=== PATIENT | female | born 1995 | race Caucasian/White ===

== ENCOUNTER 2022-03-31 08:07 | Outpatient (CLI) | payer MEDICAID, SELFPAY ==
--- NOTE | 2022-03-31 08:15 | CRLHL7_ITS ---
For Patients: As a result of the Century Cures Act, medical imaging exams and procedure reports are released immediately into your electronic medical record. You may view this report before your referring provider. If you have questions, please contact your health care provider. INDICATION: Evaluate anatomy. COMPARISON: none TECHNIQUE: Real time vega scale imaging of the fetus was performed as well as color Doppler analysis of the umbilical vessels. FINDINGS: Sonographic imaging demonstrates a single living intrauterine gestation. Fetus demonstrates a regular cardiac rate of 139 beats per minute. Fetus has a variable position. The placenta lies posteriorly without evidence of placenta previa. The edge of the placenta is located 9.6 cm from the internal cervical os. Amniotic fluid volume appears normal. Single deepest vertical pocket: 6.2 cm. The cervix is closed and measures 3.8 cm in length. The composite ultrasound gestational age is calculated at 21 weeks 1 day with an estimated sonographic due date of 08/10/2022. The estimated weight is 409 grams which lies at the 74th %. The following biometric measurements were obtained: Biparietal diameter: 4.9 cm/21 weeks 0 days 59th% Head circumference: 18.7 cm/21 weeks 0 days 55th% Abdominal circumference: 16.5 cm/21 weeks 4 days 70th% Femur length: 3.5 cm/21 weeks 0 days 52nd% The HC/AC ratio measures: 1.13 range (1.06-1.25) On anatomic survey, there is a normal appearance of the cerebral ventricles, cavum septi pellucidi, cisterna magna and cerebellum. The nose, lips, and facial profile appear normal. The cervical, thoracic and lumbar spine are well visualized and appear normal. There is a normal four-chamber heart view and the left and right ventricular outflow tracts appear normal. The diaphragm and stomach appear normal. The kidneys and bladder also appear normal. There is a normal three-vessel cord. Marginal cord insertion into the placenta located 7 millimeters from the edge of the placenta. The four extremities appear normal. IMPRESSION: Normal anatomic survey. Marginal cord insertion into the placenta located 7 millimeters from the placental edge. Sonographic gestational age 21 weeks 1 day and sonographic due date 08/10/2022. Good correlation with dates. Estimated weight 74th percentile. Dictated by Jayce Pope MD @ 03/31/2022 9:48:08 AM (Electronically Signed)
== END 2022-03-31 08:08 | disposition home or self-care (01) ==
LOC: US 08:07
PROVIDERS: Visit Provider Physician Assistant
DX: Z34.92 Encounter for supervision of normal pregnancy, unspecified, second trimester (principal); Z3A.21 21 weeks gestation of pregnancy
CPT/HCPCS: 76805

== ENCOUNTER 2022-05-26 08:57 | Outpatient (CLI) | payer OTHER, SELFPAY ==
[2022-05-27 23:47] LABS: Rapid Plasma Reagin (RPR) Non Reactive (Non Reactive)
[2022-06-04 08:39] LABS: Glucose Fasting Check 73 mg/dl (60-115)
[2022-06-04 13:18] LABS: Glucose GTT-Gestational 3 Hr 108 mg/dl (70-140)
[2022-06-04 13:18] LABS: Glucose 1 Hour Gest 93 mg/dl (70-180)
== END 2022-05-26 08:58 | disposition home or self-care (01) ==
PROVIDERS: Obstetrics & Gynecology; Visit Provider Obstetrics & Gynecology
DX: O99.810 Abnormal glucose complicating pregnancy (principal); Z3A.28 28 weeks gestation of pregnancy
CPT/HCPCS: 86592; 86850

== ENCOUNTER 2022-06-04 08:29 | Outpatient (CLI) | payer OTHER, SELFPAY | END 2022-06-04 08:30 | disposition home or self-care (01) | LOC: NFLDREF 08:30 | PROVIDERS: Visit Provider Obstetrics & Gynecology | DX: Z34.93 Encounter for supervision of normal pregnancy, unspecified, third trimester (principal); Z3A.30 30 weeks gestation of pregnancy | CPT/HCPCS: 82951; 82952 ==

== ENCOUNTER 2022-06-22 09:02 | Outpatient (CLI) | payer OTHER, SELFPAY ==
--- NOTE | 2022-06-22 09:15 | CRLHL7_ITS ---
For Patients: As a result of the Cures Act, medical imaging exams and procedure reports are released immediately into your electronic medical record. You may view this report before your referring provider. If you have questions, please contact your health care provider. INDICATION: Third trimester scan, evaluate growth. MARGINAL CORD INSERTION COMPARISON: 03/31/2022 TECHNIQUE: Real time vega scale imaging of the fetus was performed. FINDINGS: Sonographic imaging demonstrates a single living intrauterine gestation. Fetus demonstrates a regular cardiac rate of 139 beats per minute. Fetus has a vertex position. The placenta lies posteriorly. Amniotic fluid volume appears normal and there is a single deepest vertical pocket: 3.0 cm. The estimated weight is 1990gm which lies at the 38th %. On the prior OB ultrasound exam dated 03/31/2022 the estimated weight was at the 74th%. BPD 14th percentile. HC 21st percentile. AC 61st percentile. FL 22nd percentile. The HC/AC ratio measures 1.03 range (0.96-1.13). Placental cord insertion 1.7 cm from the edge of the placenta. IMPRESSION: Sonographic gestational age 32 weeks 2 days and sonographic due date 08/15/2022. Good correlation with dates. Normal interval growth. Estimated weight 38th percentile. Abdominal circumference 61st percentile. Marginal cord insertion with the cord located 1.7 cm from the placental edge. Dictated by Jayce Pope MD @ 06/22/2022 11:32:27 AM (Electronically Signed)
== END 2022-06-22 09:03 | disposition home or self-care (01) ==
LOC: US 09:03
PROVIDERS: Visit Provider Physician Assistant
DX: O43.193 Other malformation of placenta, third trimester (principal); Z3A.32 32 weeks gestation of pregnancy
CPT/HCPCS: 76816

== ENCOUNTER 2022-07-15 13:52 | Outpatient (CLI) | payer OTHER, SELFPAY ==
[2022-07-16 12:18] LABS: Strep B DNA Probe NEGATIVE (Negative)
[2022-07-16 20:52] LABS: Strep B Pen/Amox Allergy No
== END 2022-07-15 13:53 | disposition home or self-care (01) ==
PROVIDERS: Visit Provider Advanced Practice Midwife
DX: Z34.83 Encounter for supervision of other normal pregnancy, third trimester (principal); Z3A.35 35 weeks gestation of pregnancy
CPT/HCPCS: 76816; 87081; 87653

== ENCOUNTER 2022-08-03 07:45 | Inpatient (IN) | payer BC, SELFPAY ==
[2022-08-03] VITALS (18 sets, daily range): BP systolic 109–144; BP diastolic 57–86; PULSE 51–115; RESP 14–16; TEMP 36.7–37.2; O2SAT 84–100; BMI 27.8
[2022-08-03 08:54] LABS: SARS PCR* Negative SARS-CoV-2 (Negative)
--- NOTE | 2022-08-03 10:55 | W.PM.LDBA ---
Subjective History of Present Illness Date Seen: 08/03/22 Narrative: Patient is being admitted to Labor and Delivery for labor. She is a 27 year old -0-0-1 woman at 38 weeks, 4 days gestation by LMP consistent with 1st trimester ultrasound, CRISTOBAL 08/13/2022. Specific Issues/Plans blood type:?A positive Spouse: Dustin ( in the second trimester). Boy at home: Doug. G2, P1001 (Dustin also has a 14 y.o. son) 1. Closely spaced pregnancies.? Delievered 01/23/21 2. H/o genital HSV.? Rec. prophylactic tx at 36 weeks. -Confirm pt has started Valtrex by 37 weeks. 3. Marginal cord insertion 0.7 cm from edge.? US for EFW: 32 weeks: 38% 36 weeks: 39% 4. Elevated 1 hr GTT: 3hr GTT Passed. Flu: 06/22/2022 Tdap: 06/22/2022 Covid: completed.? Planning to obtain booster. Her full history and physical was dictated by Dr. Mena on 07/24/2022. Please see this for details. OB - H&P: Exam Physical Exam: Vital signs: Temp Pulse Resp BP Pulse Ox 98.0 F 77 16 109/72 98 08/03/22 07:12 08/03/22 10:46 08/03/22 07:12 08/03/22 10:46 08/03/22 10:47 Narrative: Physical exam: General: No acute distress Psych: Alert and oriented x3, full affect HEENT: Normocephalic, atraumatic Neck: No cervical adenopathy, no thyromegaly Heart: Regular rate and rhythm, no murmur rub or gallop Lungs: Clear to auscultation bilaterally Abdomen: Soft, nontender, gravid Lower extremities: No edema or erythema Cervical exam: 4.5 cm, 70% effaced,-1 station per RN at 7:30 a.m.. Bag of water intact. Repeat exam: 8 / 100 / +2, BBOW tracing: Baseline 120, accelerations to 160, no decelerations, moderate variability OB - Problem Based A/P Additional Plan (1) : Status: Resolved Plan 27-year-old [id number] woman at 38 weeks, 4 days gestation in early labor. History of genital herpes, currently maintained on Valtrex for suppression. Reassuring status with category 1 tracing. GBS negative. Delivery/Labor/Induction Plan Plan: expectant management
--- NOTE | 2022-08-03 14:00 | P.OBPRC_ITS ---
Procedure Procedure Done: [facility] Procedure Details: The patient is a 27 year-old G 2 P 1-0-0-1 woman admitted on 08/03/2022 at 38 Weeks, Days gestation for labor.? Cervical exam on admission was 4 cm/70 % effaced/-1 station with membranes intact in vertex presentation.? Contractions were every 5-7 minutes.? heart rate demonstrated baseline 120 bpm with moderate variability, positive accelerations, no decelerations; a category 1 tracing.? ? Labor Analgesia:? None ? Pitocin:? No ? Labor onset:? 11:50 a.m. AROM occurred at 1:05 p.m. with clear fluid. ? Complete:? 1:14 p.m. ? Pushing:? 1:14 p.m. ? heart tones during second stage were difficult to consistently trace; there may have been intermittent variable decelerations. ? Patient pushed in dorsal lithotomy, squatting in bed, and on hands and knees, but was unable to move the infant. She then used the stool, after which point she pushed twice. Infant's head delivered in a controlled fashion in OA presentation. The anterior shoulder was not delivered with guidance of the head posteriorly. Shoulder dystocia was diagnosed. In order to affect delivery of the shoulder, patient was moved to her back on the floor. With her knees placed in Beatriz position, the anterior shoulder was easily guided beneath the pubic bone, and the remainder of the body was delivered without difficulty. Total time between delivery of infant head and shoulder was approximately 1 minute. Female was delivered at 1:36 p.m.. Infant was placed on maternal abdomen.? Cord was clamped and cut after a 60 second delay.? Nose and mouth were bulb suctioned.? Infant weight pending.? 8 at 1 minute and 9 at 5 minutes.? Shoulder dystocia: Yes, as above.? Nuchal cord: No. ? Placenta delivered spontaneously and complete at 1:42 p.m. A succenturiate lobe and marginal cord insertion was noted. ? Mother and were stable after delivery. ? Lacerations:? Small first-degree vaginal laceration at 5 o'clock along the introitus, which was hemostatic and did not require repair. ? Blood loss: 50 mL. Blood loss measurement type: EBL ? Sponge and needles counts are correct.
[2022-08-03] MEDS: IBUPROFEN 600 MG TABLET PO ×2 (14:40→21:41)
[2022-08-03] MEDS: ACETAMINOPHEN 500 MG TABLET 1000 MG PO (18:00)
[2022-08-03] MEDS: LANOLIN CREAM 1 APPLIC TOPICAL (18:18)
[2022-08-04 00:21] VITALS: BP 110/67; PULSE 81; RESP 16; TEMP 37.1; O2SAT 96
[2022-08-04] MEDS: ACETAMINOPHEN 500 MG TABLET 1000 MG PO ×2 (00:37→09:00)
[2022-08-04 05:41] VITALS: BP 104/64; PULSE 55; RESP 14; TEMP 36.8; O2SAT 96
[2022-08-04] MEDS: IBUPROFEN 600 MG TABLET PO ×2 (05:59→12:37)
[2022-08-04 06:44] LABS: Hemoglobin* 11.7 gm/dL (12.0-16.0)
--- NOTE | 2022-08-04 07:22 | P.DS_ITS ---
DS: Providers Provider Date Seen: 08/04/22 Date of admission: 08/03/22 07:45 Primary care physician: Not a Local Provider Admitting Clinician: Emi Huynh MD Attending Physician on discharge: Shahida Marino MD Date of Discharge: 08/04/22 DS: Diagnosis Discharge Diagnosis (1) Shoulder dystocia during labor and delivery, delivered: Status: Acute (2) Normal spontaneous vaginal delivery: Status: Acute (3) Lactating mother: Status: Acute Exam Narrative: Exam Narrative: Discharge Examination? GENERAL APPEARANCE:? normal affect, alert, no distress? MOOD:? appropriate? CHEST:? clear to auscultation and percussion? HEART:? regular rate and rhythm? ABDOMEN:? soft, non-tender the uterine fundus is 2 cm Below Umbilicus, Midline and is appropriate for the stage of recovery.? PERINEUM:? mild edema of the perineum, there is a 1st degree that is healing well.? EXTREMITIES:? normal and no edema? Patient has no complaints? No active bleeding?? Doing well? She is requesting discharge home.? Const: Vital Signs, click to edit/add: Vital Signs - 24 hr 08/03/22 10:46 08/03/22 10:47 08/03/22 13:17 Temperature 98.4 F Pulse Rate 77 Pulse Rate [Pulse Oximeter] Respiratory Rate 16 Blood Pressure 109/72 Blood Pressure [Le ft Arm] Pulse Oximetry 98 98 97 Oxygen Delivery [facility] 08/03/22 13:24 08/03/22 13:25 08/03/22 13:29 Temperature Pulse Rate Pulse Rate [Pulse Oximeter] Respiratory Rate Blood Pressure Blood Pressure [Le ft Arm] Pulse Oximetry 100 90 86 L Oxygen Delivery [facility] 08/03/22 13:31 08/03/22 13:35 08/03/22 13:44 Temperature Pulse Rate 73 Pulse Rate [Pulse Oximeter] Respiratory Rate Blood Pressure 144/86 H Blood Pressure [Le ft Arm] Pulse Oximetry 84 L 97 Oxygen Delivery [facility] 08/03/22 14:05 08/03/22 14:14 08/03/22 14:27 Temperature Pulse Rate 51 L 57 L 56 L Pulse Rate [Pulse Oximeter] Respiratory Rate Blood Pressure 113/75 117/57 L 118/59 L Blood Pressure [Le ft Arm] Pulse Oximetry Oxygen Delivery [facility] 08/03/22 14:44 08/03/22 15:02 08/03/22 15:14 Temperature Pulse Rate 52 L 71 59 L Pulse Rate [Pulse Oximeter] Respiratory Rate Blood Pressure 122/80 125/64 123/70 Blood Pressure [Le ft Arm] Pulse Oximetry Oxygen Delivery [facility] 08/03/22 15:29 08/03/22 19:24 08/04/22 00:21 Temperature 99.0 F 98.8 F Pulse Rate 54 L Pulse Rate [Pulse Oximeter] 68 81 Respiratory Rate 14 16 Blood Pressure 127/73 Blood Pressure [Le ft Arm] 121/77 110/67 Pulse Oximetry 97 96 Oxygen Delivery [facility] Room Air Room Air 08/04/22 05:41 Temperature 98.2 F Pulse Rate Pulse Rate [Pulse Oximeter] 55 L Respiratory Rate 14 Blood Pressure Blood Pressure [Le ft Arm] 104/64 Pulse Oximetry 96 Oxygen Delivery Me [facility] Room Air Documenting provider has reviewed patient's vital signs: yes OB - DS: Summary Hospital Course Hospital Course: Patient is a 27year old, G 2 now P 2? admitted on 08/03/22 at 38 Weeks, 4 Days g estation for active labor.? She had a vaginal delivery complicated by a 1 minute shoulder dystocia resolved with Beatriz maneuver.? She delivered a viable female .? She is breast feeding and reports things are well.? the patient has done well.? Her pain is well controlled with current medications.? She has no new complaints.? Vitals have been stable. She has remained afebrile. She is voiding without difficulty. She is passing gas and has not had a bowel movement. She is ambulating and denies any dizziness. She is planning IUD (probably Mirena) for control.??? Peripartum Data delivery method: Vaginal (with a 1 min shoulder dystocia) Laceration description: Perineal - 1st Degree (not repaired) Episiotomy description: None complications: none Donora Gender: Female Infant Discharge Plan: Home Status at Discharge Functional status at discharge: independent ambulation Overall status at discharge: patient is progressing back to baseline Time Spent with Patient Time attestation: Total time spent providing and/or coordinating discharge services: Discharge Plan Discharge Disposition: Home, Self-Care Date of Admission: 08/03/22 07:45 Attending Provider on Discharge: Sujatha Sunshine Primary Care Provider: Provider,Not a Local Condition: Stable Anticipated Discharge Date/Time: 08/04/22 15:00 Discharge Medications: New docusate sodium 100 mg Capsule 100 mg PO DAILY Qty: 90 0RF Rx Instructions: Take 1-2 tablets daily as needed for constipation. ibuprofen 600 mg Tablet 600 mg PO Q6H PRNQty: 30 0RF Continued prenat.vits,jerome,[id number] Tablet 1 tab PO QDAY Discontinued ferrous sulfate [Feosol] 325 mg (65 mg iron) tablet 325 mg PO QDAY No Action valacyclovir [Valtrex] 500 mg tablet 500 mg PO BID Qty: 60 1RF Discharge Orders: Discharge Order (Routine); Ordered 08/04/22 Ordered By: Sujatha Sunshine Additional Instructions: Discharge instructions were reviewed with the patient including signs and symptoms of infection and home going medications.? Do not drive while taking narcotic pain meds.? Off Work or School for 6 weeks.? ?? Symptoms to report to doctor:? -Bleeding that saturates more than one pad per hour? -Passing clots larger than the size of a golf ball? -Pain not relieved by prescribed medication? -Fever above 100.4 degrees Fahrenheit? -A foul vaginal odor? -Difficulty in emotions, mood and functions? -Thoughts of hurting yourself and/or ? -Painful, reddened area in your breast? -Any drainage, redness or tenderness in your IV/epidural site? -Severe headache that doesn't improve after taking medications? -Changes in vision, including temporary loss of vision, blurred vision, and/or light sensitivity? -Upper abdominal pain (usually under ribs on the right side)? -Decrease in urination or painful, frequent urinating? -Chest pain? -Shortness of breath? -Tenderness or pain with redness and/swelling in the calf(s) of your leg? ?? Follow Up in clinic in 2 and 6 weeks.? ?? consultation services are available to all mothers and babies for the first year after delivery.? To make an appointment, please call [phone].? Activity Level: No Restrictions and Activity as Tolerated Discharge Diet: Regular Follow Up Appointments: [facility] [Provider Group] Provider,Not a Local [Primary Care Provider] - Forms: [employer] Info Instructions
[2022-08-04 08:47] VITALS: BP 116/78; PULSE 62; RESP 16; TEMP 36.7; O2SAT 98
[2022-08-04] MEDS: DOCUSATE SODIUM 100 MG CAPSULE PO (09:00)
[2022-08-04 12:38] VITALS: BP 124/78; PULSE 63; RESP 16; TEMP 36.6; O2SAT 96
== END 2022-08-04 16:30 | disposition home or self-care (01) | DRG 560 ==
LOC: OB OUT 07:46 → OB 07:46
PROVIDERS: Admitting Provider Obstetrics & Gynecology; Visit Provider Obstetrics & Gynecology
DX: O66.0 Obstructed labor due to shoulder dystocia (principal); O98.32 Other infections with a predominantly sexual mode of transmission complicating childbirth; A60.00 Herpesviral infection of urogenital system, unspecified; O70.0 First degree perineal laceration during delivery; Z3A.38 38 weeks gestation of pregnancy; Z37.0 Single live birth
CPT/HCPCS: 36415; 85018; 87635; A9270

== ENCOUNTER 2022-08-07 14:37 | Outpatient (CLI) | payer BC, SELFPAY ==
--- NOTE | 2022-08-07 16:03 | W.PM.LAC.BC ---
Consult Note - Baby Date of Visit Date of visit: 08/07/22 customer service consultant: Estella Carpenter Visit Code: Visit Mother's Information Mother's Name: Anyi Phone number: [phone] : 2 Para: 2 Mother's Medications: colace, ibuprofen, pnv, valtrex Mother's Medical History: vaginal herpes Delivery Information Delivery method: Vaginal Weeks Gestation: 38.4 Gestational Age: AGA Weight: 3.175 kg Discharge Weight: 3.158 kg Patient Information Baby's Age at Visit: 4 days Baby's Provider or Clinic:
--- NOTE | 2022-08-07 16:35 | W.PM.LAC.MC ---
Consult Note - Mom Date of Visit Date of visit: 08/07/22 ada accommodation consultant: Estella Carpenter Visit Code: Visit Patient's Information Phone number: [phone] : 2 Para: 2 Allergies No Known Allergies Allergy (Verified 08/19/22 11:04) Mother's Medical History: Medical History (Updated 08/08/22 @ 00:01 by ) History of herpes genitalis Delivery Information Delivery type: Vaginal Weeks Gestation: 38.4 Gestational Age: AGA Weight: 3.175 kg Discharge Weight: 3.158 kg Baby's Information Baby's Age at Visit: 4 days Baby's Provider or Clinic: Arely Rodgers CNP Jaundice: Yes (to BLE) Reason for Consult Reason for Consult: painful latch on the left side Past Experience Past Experience: No (was unsuccessful in nursing her firstborn (now 16 months)) Current Frequency of Day Feedings: about 1.5 hours Frequency of Night Feedings: 1.5 - 3 hours Both Breasts: Yes Suck: strong Latch: wide Length of Time: 10 min/side Goals: would like to be successful in nursing this baby Pumping Pumping: Yes (has used the Haakaa a few times for comfort) Supplementing EMB Supplement: No Formula Supplement: No Baby Elimination Number of Wet Diapers a Day: almost every feeding Number of BM a Day: had one large BM this morning, no BM for two days prior Breast/Nipple Condition Breast Information: WNl Engorgement: Yes (slightly, milk came in on 08/06) Maternal Nipple Condition - Left: Short Maternal Nipple Condition - Right: Short Sore Nipples: Yes (on the left side) Onsite Pre-Feed weight: 3.118 kg Post-Feed weight: 3.144 kg Milk Transferred (mL): 26 Pre-Nursing Left Nipple: Within Normal Limits Pre-Nursing Right Nipple: Within Normal Limits Post-Nursing Left Nipple: Within Normal Limits Post-Nursing Right Nipple: Within Normal Limits Assessments/Interventions Assessments/Interventions: Assessments/Interventions: Met with mom and this now 4 day old ex- term AGA baby for consult.? Mom called the office on 08/05 stating nursing was painful on both sides but today she reports it's better on the right.? She states her milk came in on 08/06 and baby is nursing about every 1.5 hours around the clock (will sometimes go up to three hours).? Mom hasn't started pumping but has used the Haakaa while baby is nursing to catch what leaks. Mom is concerned baby may have a tongue tie. Breasts WNL- symmetrical with rounded lower quadrants and the intramammary distance is < 1.5 inches.? Nipples are short but everted and don't flatten or retract on compression.? No signs of damage on the right but the left has stage II breakdown that has scabbed.? Baby has gained 50 grams/day since her last visit on 08/05 and is only 2% below BW at 4 DOL.? Per the delivery note she had mild shoulder dystocia but mom denies unequal ROM when turning her head or moving her extremities.? She also denies a caput or cephalohematoma.? Baby's palate and upper frenulum are WNL.? Her lower frenulum is anterior but she can raise her tongue when she cries and the tongue also has good lateral movement.? Baby has a strong suck on a finger and the tongue extends past the gum line.? She's jaundiced to her BLE and the TSB = 10.5, no treatment recommended per [employer].? Mom latched baby to the left side and was uncomfortable.? When she was verbally coached to concentrate on pointing baby's nose to her nipple and bring her in quickly when she opened her mouth, baby had a deeper latch and mom felt much better.? Baby nursed about 15 minutes and when she unlatched mom switched her to the right side where the latch was comfortable on the first attempt.? Baby nursed another 15 minutes and transferred 26 ml.? Plan: 1. Continue to nurse ALD offering both sides and using the ideas above to get a deep latch.? Encouraged mom to offer both sides at each nursing session and not to let her go past three hours for now. 2. No medical need to supplement baby so suggested waiting to offer a bottle until she's about a month old. 3. OK to hand express or use her Haakaa or pump if needed but only to comfort. No need to pump to empty until she's ready to introduce the bottle. 4. Will f/u with TSB results and baby has a 2 week WCC next week. 5. As long as continues to get more comfortable and baby continues to gain weight, there's probably no need for a frenulectomy. 5. Offered a one month pre and post weight check but mom declined, will come to [facility] instead. Meds Home Medications and Allergies Home Medications Medication Instructions Recorded Confirmed Type prenat.vits,jerome,[id number] 1 tab PO QDAY 02/09/22 07/31/22 History acetaminophen 500 mg tablet 1,000 mg PO Q6H PRN 08/19/22 08/19/22 History (Tylenol Extra Strength) Allergies Allergy/AdvReac Type Severity Reaction Status Date / Time No Known Allergies Allergy Verified 08/19/22 11:04
== END 2022-08-07 14:38 | disposition home or self-care (01) ==
PROVIDERS: Visit Provider Obstetrics & Gynecology
DX: Z39.1 Encounter for care and examination of lactating mother (principal)
CPT/HCPCS: 99211